=== PATIENT | female | born 1970 | race Caucasian/White ===

== ENCOUNTER 2020-01-02 19:47 | Emergency (ER) | payer SELFPAY ==
[2020-01-02 20:39] LABS: #Basophils 0.1 thou/uL (0.0-0.2); #Eosinphils 0.1 thou/uL (0.0-0.7); #Lymphocytes 2.7 thou/uL (1.20-3.40); #Monocytes 0.6 thou/uL (0.11-0.59); #Neutrophils 4.6 thou/uL (1.40-6.50); %Basophils 1.4 % (0.0-1.0); %Eosinophils 1.2 % (0.0-10.0); %Lymphocytes 33.3 % (21.0-51.0); %Monocytes 7.7 % (0.0-10.0); %Neutrophils 56.4 % (42.0-75.0); Hemoglobin 15.4 g/dL (12.0-16.0); Mean Corpuscular HGB CONC 32.4 g/dL (32.0-36.0); Mean Corpuscular Hemoglobin 31.1 pg (27.0-31.0); Mean Corpuscular Volume 96.1 fL (78.0-98.0); Mean Platelet Volume 7.2 fL (7.4-10.4); Platelet Count 287 thou/uL (130-400); RBC Distribution Width 12.1 % (11.5-14.5); Red Blood Cell (RBC) Count 4.94 mill/uL (4.20-5.40); White Blood Cell (WBC) Count 8.2 thou/uL (4.8-10.8)
[2020-01-02 20:43] LABS: Bilirubin Negative (Negative); Blood, Urine Trace (Negative); Clarity Clear (Clear); Glucose, Urine (Dipstick) Negative (Negative); Ketone, Urine Negative (Negative); Leukocyte Negative (Negative); Nitrite Negative (Negative); Protein, Urine (Dipstick) Negative (Neg-Trace); Urobilinogen 0.2 mg/dL (Less than 2)
[2020-01-02 20:45] LABS: Acetaminophen Less than 6.0 mcg/mL (10.0-30.0); Alcohol Less than 10 mg/dL (Less than 10); CK (CPK) 96 U/L (29-168); Salicylate Less than 8.0 mg/dL (15.0-30.0)
[2020-01-02 20:47] LABS: ALT (SGPT) 35 U/L (8-55); AST (SGOT) 24 U/L (5-34); Albumin 4.4 g/dL (3.5-5.0); Alkaline Phosphatase 85 U/L (40-110); Anion Gap 15 mmol/L (10-20); BUN (Urea Nitrogen) 7 mg/dL (7.0-18.7); Bilirubin, Total 0.2 mg/dL (0.2-1.2); Calc. Creatinine Clearance 0 mL/min (70-130); Calcium 9.3 mg/dL (7.8-10.44); Carbon Dioxide 31 mmol/L (22-29); Chloride 100 mmol/L (98-107); Estimated GFR-MDRD 85; Globulin 3.1 g/dL (2.4-3.5); Glucose 81 mg/dL (70-105); Protein, Total 7.5 g/dL (6.0-8.3); Sodium 143 mmol/L (136-145)
[2020-01-02 20:51] LABS: Potassium 2.6 mmol/L (3.5-5.1)
[2020-01-02 20:53] LABS: Amphetamine Detected (NotDetected); Barbiturates Screen Not Detected (NotDetected); Benzodiazepine Screen Not Detected (NotDetected); Cocaine Metabolite Screen Not Detected (NotDetected); Medtox Control Line Valid? VALID (VALID); Methadone Not Detected (NotDetected); Methamphetamine Detected (NotDetected); Opiate Screen Detected (NotDetected); Oxycodone Screen Not Detected (NotDetected); Phencyclidine (PCP) Not Detected (NotDetected); THC/Cannabinoid Screen Not Detected (NotDetected); Tricyclic Screen Not Detected (NotDetected)
[2020-01-02 21:02] LABS: Bacteria/HPF None Seen HPF (None Seen); Squamous Epithelial 0-3 HPF (0-3); WBC/HPF None Seen HPF (0-3)
[2020-01-02] MEDS ORDERED: Potassium Chloride 20 MEQ TAB ONE (21:31)
[2020-01-02 22:00] LABS: Control Line Color Pink/Red Line (Pink/Red); HIV-1/2 Antibodies Non Reactive (NonReactive)
[2020-01-02] MEDS ORDERED: Acetaminophen 325 MG TAB ONE (22:09)
[2020-01-03] MEDS ORDERED: Lorazepam 2 MG/ML VIAL ONE (00:39)
[2020-01-03 00:53] LABS: HBSAg Index 0.22 S/CO (0-0.99); Hep B Surf Ag Non-Reactive S/CO (NonReactive); Hep C IgG Ab Non-Reactive (NonReactive); Hep C Index 0.22 S/CO (0-0.79)
--- NOTE | 2020-01-03 07:45 | RAD ---
EXAM: 4 views of the left knee HISTORY: Knee pain COMPARISON: None FINDINGS: No knee effusion is seen. There is no evidence of acute fracture or dislocation. No signifi cant degenerative changes are seen. No soft tissue swelling is present. IMPRESSION: No evidence of acute osseous abnormality.
== END 2020-01-03 01:34 | disposition left against medical advice (07) ==
LOC: MADERS 19:47
DX: R44.0 Auditory hallucinations (principal); F31.9 Bipolar disorder, unspecified; F41.9 Anxiety disorder, unspecified; F17.210 Nicotine dependence, cigarettes, uncomplicated; I10 Essential (primary) hypertension; Z79.899 Other long term (current) drug therapy
CPT/HCPCS: 36415; 80053; 80306; 80307; 81003; 81015; 82550; 84443; 85025; 86703; 86803; 87340; 96372; J2060

== ENCOUNTER 2020-01-04 18:06 | Emergency (ER) | payer SELFPAY ==
[2020-01-04 19:11] LABS: #Basophils 0.1 thou/uL (0.0-0.2); #Eosinphils 0.1 thou/uL (0.0-0.7); #Lymphocytes 3.1 thou/uL (1.20-3.40); #Monocytes 0.7 thou/uL (0.11-0.59); %Basophils 1.1 % (0.0-1.0); %Eosinophils 1.6 % (0.0-10.0); %Lymphocytes 38.9 % (21.0-51.0); %Monocytes 8.1 % (0.0-10.0); %Neutrophils 50.3 % (42.0-75.0); Hemoglobin 13.8 g/dL (12.0-16.0); Mean Corpuscular HGB CONC 31.8 g/dL (32.0-36.0); Mean Corpuscular Volume 97.6 fL (78.0-98.0); Mean Platelet Volume 7.1 fL (7.4-10.4); Platelet Count 319 thou/uL (130-400); RBC Distribution Width 12.2 % (11.5-14.5); Red Blood Cell (RBC) Count 4.45 mill/uL (4.20-5.40)
[2020-01-04 19:16] LABS: Alcohol Less than 10 mg/dL (Less than 10); Salicylate Less than 8.0 mg/dL (15.0-30.0)
[2020-01-04 19:18] LABS: ALT (SGPT) 29 U/L (8-55); AST (SGOT) 18 U/L (5-34); Albumin 4.2 g/dL (3.5-5.0); Alkaline Phosphatase 88 U/L (40-110); Anion Gap 13 mmol/L (10-20); BUN (Urea Nitrogen) 11 mg/dL (7.0-18.7); Bilirubin, Total Less than 0.2 mg/dL (0.2-1.2); Calc. Creatinine Clearance 0 mL/min (70-130); Calcium 9.1 mg/dL (7.8-10.44); Carbon Dioxide 30 mmol/L (22-29); Chloride 105 mmol/L (98-107); Estimated GFR-MDRD 85; Globulin 2.9 g/dL (2.4-3.5); Glucose 93 mg/dL (70-105); Potassium 3.5 mmol/L (3.5-5.1); Protein, Total 7.1 g/dL (6.0-8.3); Sodium 144 mmol/L (136-145)
[2020-01-04 19:33] LABS: Pregnancy Test - Urine (BHCG) Negative (Negative)
[2020-01-04 19:34] LABS: Pregu Control Background? CLEAR/WHITE (CLR/WHITE); Pregu Control Bar Appear? YES (CONTROL BAR)
[2020-01-04] MEDS ORDERED: Ketorolac Tromethamine 30 MG/ML VIAL ONE (19:44)
[2020-01-04] MEDS ORDERED: Lorazepam 1 MG TAB ONE (19:44)
[2020-01-04 19:47] LABS: Amphetamine Detected (NotDetected); Cocaine Metabolite Screen Detected (NotDetected); Methamphetamine Detected (NotDetected); Opiate Screen Not Detected (NotDetected); Phencyclidine (PCP) Not Detected (NotDetected); THC/Cannabinoid Screen Not Detected (NotDetected)
[2020-01-04 19:48] LABS: Barbiturates Screen Not Detected (NotDetected); Benzodiazepine Screen Detected (NotDetected); Medtox Control Line Valid? VALID (VALID); Methadone Not Detected (NotDetected); Oxycodone Screen Not Detected (NotDetected); Tricyclic Screen Not Detected (NotDetected)
[2020-01-05] MEDS ORDERED: Acetaminophen 500 MG TAB ONE (02:55)
[2020-01-05] MEDS ORDERED: Lorazepam 1 MG TAB ONE (04:30)
[2020-01-05] MEDS ORDERED: Ibuprofen 800 MG TAB ONE (09:37)
[2020-01-05] MEDS ORDERED: traMADol HCl 50 MG TAB ONE (09:37)
== END 2020-01-05 10:11 ==
LOC: MADERS 18:06
DX: M54.5 Low back pain (principal); R44.0 Auditory hallucinations; I10 Essential (primary) hypertension; F31.9 Bipolar disorder, unspecified; F41.9 Anxiety disorder, unspecified; F17.210 Nicotine dependence, cigarettes, uncomplicated; Z79.899 Other long term (current) drug therapy
CPT/HCPCS: 36415; 80053; 80306; 80307; 81025; 84443; 85025; 96372; 99285; J1885

== ENCOUNTER 2020-04-30 20:08 | Emergency (ER) | payer SELFPAY ==
[2020-04-30] MEDS ORDERED: Dexamethasone 10 MG/ML VIAL ONE (20:17)
[2020-04-30] MEDS ORDERED: Ketorolac Tromethamine 30 MG/ML VIAL ONE (20:17)
== END 2020-04-30 21:25 | disposition home or self-care (01) ==
LOC: MADERS 20:08
DX: T63.441A Toxic effect of venom of bees, accidental (unintentional), initial encounter (principal); F17.210 Nicotine dependence, cigarettes, uncomplicated
CPT/HCPCS: 96372; 99283; J1100; J1885

== ENCOUNTER 2020-07-10 06:21 | Emergency (ER) | payer SELFPAY ==
[2020-07-10] MEDS ORDERED: Ketorolac Tromethamine 30 MG/ML VIAL ONE (08:03)
[2020-07-10] MEDS ORDERED: Ondansetron ODT 4 MG TAB ONE (08:03)
== END 2020-07-10 08:15 | disposition home or self-care (01) ==
LOC: MADERS 06:21
DX: M54.42 Lumbago with sciatica, left side (principal); F19.10 Other psychoactive substance abuse, uncomplicated; I10 Essential (primary) hypertension; F17.210 Nicotine dependence, cigarettes, uncomplicated
CPT/HCPCS: 72100; 96372; J1885; Q0162

== ENCOUNTER 2023-08-28 17:29 | Emergency (ER) | payer OTHER, SELFPAY | END 2023-08-28 18:43 | disposition home or self-care (01) | LOC: MADERS 17:29 | DX: T78.2XXA Anaphylactic shock, unspecified, initial encounter (principal); I10 Essential (primary) hypertension; F17.210 Nicotine dependence, cigarettes, uncomplicated | CPT/HCPCS: 99282 ==

== ENCOUNTER 2023-09-03 10:46 | Emergency (ER) | payer OTHER ==
[2023-09-03] MEDS ORDERED: EPINEPHrine 1 MG/ML VIAL ONE (10:49)
== END 2023-09-03 11:35 | disposition home or self-care (01) ==
LOC: MADERS 10:46
DX: T63.461A Toxic effect of venom of wasps, accidental (unintentional), initial encounter (principal); I10 Essential (primary) hypertension; F31.9 Bipolar disorder, unspecified; F17.210 Nicotine dependence, cigarettes, uncomplicated
CPT/HCPCS: 99282; J0171

== ENCOUNTER 2024-11-03 21:56 | Emergency (ER) | payer OTHER ==
[2024-11-03] MEDS ORDERED: Cephalexin 500 MG CAP ONE (23:43)
== END 2024-11-03 23:46 | disposition home or self-care (01) ==
LOC: MADERS 21:56
DX: S61.431A Puncture wound without foreign body of right hand, initial encounter (principal); I10 Essential (primary) hypertension; F17.210 Nicotine dependence, cigarettes, uncomplicated; W60.XXXA Contact with nonvenomous plant thorns and spines and sharp leaves, initial encounter
CPT/HCPCS: 99283

== ENCOUNTER 2024-11-05 05:08 | Emergency (ER) | payer OTHER ==
[2024-11-05] MEDS ORDERED: Ketorolac Tromethamine 30 MG (1 mL) VIAL ONE (05:38)
[2024-11-05] MEDS ORDERED: Clindamycin 150 MG CAP ONE (05:41)
== END 2024-11-05 05:55 | disposition home or self-care (01) ==
LOC: MADERS 05:08
DX: S61.431A Puncture wound without foreign body of right hand, initial encounter (principal); I10 Essential (primary) hypertension; F17.210 Nicotine dependence, cigarettes, uncomplicated; X58.XXXA Exposure to other specified factors, initial encounter
CPT/HCPCS: 96372; 99282; J1885